=== PATIENT | female | born 1955 ===

== ENCOUNTER 2023-04-10 21:22 | Emergency (ER) | payer MEDICAID ==
[~2023-04-10] VITALS: Ht 165.1 cm; Wt 68.2 kg
[2023-04-10 21:43] VITALS: TEMP 98.7
[2023-04-10] MEDS ORDERED: MIRA50TA PO (21:57)
[2023-04-10] MEDS ORDERED: PRED5TAB2 PO (21:57)
[2023-04-10] MEDS ORDERED: TRAZ-252 PO (21:57)
[2023-04-10] MEDS ORDERED: FAMO20TA8 PO (21:57)
[2023-04-10] MEDS ORDERED: ALBU18HF12 IH (21:57)
[2023-04-10] MEDS ORDERED: SULF500T8 PO (21:57)
[2023-04-10] MEDS ORDERED: ERGO500093 PO (21:57)
[2023-04-10 22:28] LABS: BASOPHILS % (AUTO) 0.3 % (0.0-2.0); EOSINOPHILS % (AUTO) 0.7 % (1.0-6.0); HEMATOCRIT 42.9 % (36-46); HEMOGLOBIN 14.1 g/dL (12.0-16.0); LYMPHOCYTES # (AUTO) 2.4 K/uL (1.0-4.8); LYMPHOCYTES % (AUTO) 26.5 % (22.0-44.0); MEAN CORPUSCULAR HEMOGLOBIN 27.6 pg (26.0-34.0); MEAN CORPUSCULAR VOLUME 84 fL (80-100); MONOCYTES # (AUTO) 0.5 K/uL (0.1-1.0); NEUTROPHILS # (AUTO) 5.9 K/uL (1.8-7.7); NEUTROPHILS % (AUTO) 66.5 % (40.0-70.0); PLATELET COUNT (AUTO) 315 K/uL (150-450); RED BLOOD CELL COUNT(AUTO) 5.12 MIL/uL (4.00-5.20); RED CELL DISTRIBUTION WIDTH 14.7 % (11.5-14.5); WHITE BLOOD COUNT (AUTO) 8.9 K/uL (4.5-11.0)
[2023-04-10 22:35] LABS: CALCIUM, TOTAL 9.1 mg/dL (8.8-10.5); CREATININE 0.93 mg/dL (0.60-1.30); POTASSIUM 4.1 mmol/L (3.5-5.1)
[2023-04-10 22:38] LABS: PROTHROMBIN TIME 10.5 SEC (9.4-11.6)
[2023-04-10 22:42] LABS: ALBUMIN 3.4 g/dL (3.4-5.0); BILIRUBIN,TOTAL 0.2 mg/dL (0.1-1.0)
[2023-04-10 22:43] LABS: TROPONIN I-HIGH SENSITIVITY 6 ng/L (<51)
[2023-04-10 22:51] LABS: APPEARANCE,URINE CLEAR (CLEAR); BILIRUBIN,URINE NEGATIVE (NEGATIVE); COLOR,URINE COLORLESS (YELLOW); GLUCOSE, URINE (UA) NEGATIVE (NEGATIVE); KETONES,URINE NEGATIVE (NEGATIVE); LEUKOCYTE ESTERASE ,URINE NEGATIVE (NEGATIVE); NITRATE,URINE NEGATIVE (NEGATIVE); OCCULT BLOOD,URINE NEGATIVE (NEGATIVE); PH,URINE 6.5 (5.0-8.0); PROTEIN,URINE NEGATIVE (NEGATIVE); SPECIFIC GRAVITIY, URINE 1.009 (1.003-1.030); UROBILINOGEN,URINE <=1.0 mg/dL (<=1.0)
[2023-04-10] MEDS ORDERED: SODIUM CHLORIDE 0.9% 1,000 ML IV ONE (23:30)
[2023-04-10 23:59] VITALS: BP 176/84; PULSE 75; RESP 16
== END 2023-04-11 01:17 | disposition home or self-care (01) ==
LOC: EMS 21:23
DX: E86.0 Dehydration (principal); R55 Syncope and collapse
CPT/HCPCS: 99285; 96360; 70450; 71045; 80053; 81003; 82550; 83880; 84484; 85025; 85610; 85730; 36415; 93005; J7030